=== PATIENT | male | born 1975 | race Caucasian/White ===

== ENCOUNTER 2020-02-08 03:04 | Emergency (ER) | payer OTHER ==
[2020-02-08] MEDS ORDERED: LACTATED RINGERS SOLUTION 1000 ML INFUS.BAG IV ONE ×2 (03:39→04:44)
[2020-02-08] MEDS ORDERED: morphine CARPU-JECT 4 MG/1 ML DISP.SYRIN IVPUSH ONE (03:39)
[2020-02-08] MEDS ORDERED: morphine SULFATE 4 MG/ML VIAL ONE (03:41)
[2020-02-08] MEDS ORDERED: SIMETHICONE 80 MG TAB.CHEW (FP) PO ONE (03:49)
[2020-02-08 04:00] LABS: BASO % 1.1 % (0-2.0); EOS % 2.8 % (0-4.5); HEMATOCRIT 45.9 % (35.4-49); HEMOGLOBIN 15.5 GM/dL (11.7-16.9); LYMPH % 16.8 % (8-40); MCH 31.8 pg (25.7-33.7); MCHC 33.7 g/dl (32.0-35.9); MEAN CELL VOLUME 94.4 fl (80-96); MEAN PLT VOLUME 8.1 fl (7.5-11.1); MONO % 4.4 % (3.8-10.2); NEUT % 74.9 % (42.8-82.8); PLATELET COUNT 240 K/MM3 (134-434); RBC 4.86 M/mm3 (4.00-5.60); RDW 13.9 % (11.9-15.9); WHITE BLOOD COUNT 10.2 K/mm3 (4.0-10.0)
[2020-02-08 04:09] LABS: CHLORIDE 110 mmol/L (98-107); POTASSIUM 3.8 mmol/L (3.5-5.1); SODIUM 141 mmol/L (136-145)
[2020-02-08 04:12] LABS: ALBUMIN 3.7 g/dl (3.4-5.0); ANION GAP 8 MMOL/L (8-16); BLOOD UREA NITROGEN 13.2 mg/dL (7-18); CALCIUM 8.4 mg/dL (8.5-10.1); CO2 23 mmol/L (21-32); GLUCOSE,RANDOM 131 mg/dL (74-106); LIPASE 180 U/L (73-393)
[2020-02-08 04:15] LABS: SGOT/AST 27 U/L (15-37); SGPT/ALT 61 U/L (13-61)
[2020-02-08 04:16] LABS: BILIRUBIN,TOTAL 0.3 mg/dL (0.2-1)
[2020-02-08 04:17] LABS: TOT PROT 7.2 g/dl (6.4-8.2)
[2020-02-08 04:18] LABS: ALK PHOS 129 U/L (45-117)
[2020-02-08 05:12] LABS: URINE APPEARANCE CLEAR; URINE BILIRUBIN NEGATIVE (NEGATIVE); URINE COLOR YELLOW; URINE GLUCOSE (UA) NEGATIVE (NEGATIVE); URINE KETONE NEGATIVE (NEGATIVE); URINE LEUK ESTERASE NEGATIVE (NEGATIVE); URINE NITRITE NEGATIVE (NEGATIVE); URINE PROTEIN NEGATIVE (NEGATIVE); URINE UROBILINOGEN 0.2 mg/dL (0.2-1.0)
[2020-02-08 14:01] VITALS: BP 117/68; PULSE 67; TEMP 98.4
== END 2020-02-08 14:26 | disposition home or self-care (01) ==
LOC: JER 03:04
PROC: 3E033NZ Introduction of Analgesics, Hypnotics, Sedatives into Peripheral Vein, Percutaneous Approach (ICD-10-PCS; principal; 2020-02-08)
DX: R10.13 Epigastric pain (principal)
CPT/HCPCS: 36415; 74019-TC-FY; 76705-TC; 80053; 81003; 83605; 83690; 84484; 85025; 86900; 87086; 93005; 93010; 99285-25; C9803; U0003

== ENCOUNTER 2020-05-19 03:08 | Inpatient (IN) | payer OTHER ==
[2020-05-19 03:21] VITALS: BMI 28.3
[2020-05-19] MEDS ORDERED: ONDANSETRON 4 MG/2 ML VIAL IVPUSH ONE (03:28)
[2020-05-19] MEDS ORDERED: ONDANSETRON 4 MG/2 ML VIAL ONE (03:37)
[2020-05-19] MEDS ORDERED: FAMOTIDINE 20 MG/50 ML IVPB 20 MG/50 ML MG IVPB ONE ×2 (03:42→03:49)
[2020-05-19] MEDS ORDERED: MAG HYDROX/AL HYDROX/SIMETH 30 ML UNIT-DOSE CUP PO ONE (03:42)
[2020-05-19] MEDS ORDERED: SODIUM CHLORIDE 0.9% 500 ML INFUS.BAG IV ONE (03:42)
[2020-05-19] MEDS ORDERED: MAG HYDROX/AL HYDROX/SIMETH 30 ML UNIT-DOSE CUP ONE (03:49)
[2020-05-19 04:00] LABS: BASO % 0.5 % (0-2.0); EOS % 0.1 % (0-4.5); HEMATOCRIT 45.8 % (35.4-49); HEMOGLOBIN 15.5 GM/dL (11.7-16.9); LYMPH % 10.5 % (8-40); MCH 31.1 pg (25.7-33.7); MCHC 33.8 g/dl (32.0-35.9); MEAN CELL VOLUME 91.9 fl (80-96); MONO % 7.7 % (3.8-10.2); NEUT % 81.2 % (42.8-82.8); PLATELET COUNT 253 K/MM3 (134-434); RBC 4.99 M/mm3 (4.00-5.60); RDW 13.5 % (11.9-15.9); WHITE BLOOD COUNT 12.9 K/mm3 (4.0-10.0)
[2020-05-19 04:25] LABS: POTASSIUM 3.9 mmol/L (3.5-5.1)
[2020-05-19 04:27] LABS: CALCIUM 8.9 mg/dL (8.5-10.1)
[2020-05-19 04:28] LABS: BLOOD UREA NITROGEN 14.3 mg/dL (7-18)
[2020-05-19 04:30] LABS: CREATININE 0.9 mg/dL (0.55-1.3)
[2020-05-19 04:32] LABS: BILIRUBIN,TOTAL 1.3 mg/dL (0.2-1); TOT PROT 7.5 g/dl (6.4-8.2)
[2020-05-19] MEDS ORDERED: PIPERACILLIN/TAZOB 3.375 GM 3.375 GM in DEXTROSE 5%-WATER - 50 ML IVPB ONE (05:42)
[2020-05-19] MEDS ORDERED: PIPERACILLIN/TAZOB 3.375 GM 3.375 GM/50 ML BAG IVPB ONE ×2 (05:51→10:51)
[2020-05-19 06:23] LABS: INR 1.02 (0.83-1.09); PROTHROMBIN TIME (PATIENT) 12.5 SEC (9.7-13.0)
[2020-05-19 06:26] LABS: ACTIVATED PTT 31.5 SECONDS (25.2-36.5)
[2020-05-19] MEDS ORDERED: POTASSIUM CHLORIDE 10 MEQ in DEXTROSE 5%-NORMAL SALINE 1,000 ML IVPB SCH (08:30)
[2020-05-19] MEDS ORDERED: DEXTROSE 5%-LACTATED RINGERS 1,000 ML IV SCH (08:30)
[2020-05-19] MEDS ORDERED: ACETAMINOPHEN 1000 MG/100 ML VIAL (NON FORMULARY) IVPB PRN ×2 (08:35→14:25)
[2020-05-19] MEDS ORDERED: MORPHINE SULFATE 2 MG/ML VIAL IVPUSH PRN ×2 (08:36→14:25)
[2020-05-19] MEDS ORDERED: PIPERACILLIN/TAZOB 3.375 GM 3.375 GM in DEXTROSE 5%-WATER - 50 ML IVPB SCH (09:00)
[2020-05-19] MEDS ORDERED: BUPIVACAINE HCL 100 ML ONE (11:10)
[2020-05-19] MEDS ORDERED: ROCURONIUM BROMIDE 50 MG/5 ML SYRINGE ONE (12:12)
[2020-05-19] MEDS ORDERED: NEOSTIGMINE METHYLSULFATE 0.5 MG/ML - 10 ML MDV ONE (12:15)
[2020-05-19] MEDS ORDERED: BUPIVACAINE HCL/PF 0.5% (5MG/ML) 10 ML VIAL IJ ONE (13:43)
[2020-05-19] MEDS: oxyCODONE HCL 5 MG TABLET PO PRN (20:30)
[2020-05-20] MEDS ORDERED: PIPERACILLIN/TAZOB 3.375 GM 3.375 GM in DEXTROSE 5%-WATER - 50 ML IVPB SCH (03:00)
[2020-05-20] MEDS: oxyCODONE HCL 5 MG TABLET PO PRN ×2 (05:18→09:03)
[2020-05-20 05:46] VITALS: TEMP 98.6
[2020-05-20 07:34] LABS: BASO % 0.1 % (0-2.0); EOS % 0.1 % (0-4.5); HEMATOCRIT 39.8 % (35.4-49); HEMOGLOBIN 14.4 GM/dL (11.7-16.9); LYMPH % 14.1 % (8-40); MCH 32.7 pg (25.7-33.7); MCHC 36.1 g/dl (32.0-35.9); MEAN CELL VOLUME 90.7 fl (80-96); MEAN PLT VOLUME 8.4 fl (7.5-11.1); MONO % 10.3 % (3.8-10.2); NEUT % 75.4 % (42.8-82.8); PLATELET COUNT 224 K/MM3 (134-434); RBC 4.39 M/mm3 (4.00-5.60); RDW 12.9 % (11.9-15.9); WHITE BLOOD COUNT 10.8 K/mm3 (4.0-10.0)
[2020-05-20 07:59] LABS: POTASSIUM 3.9 mmol/L (3.5-5.1)
[2020-05-20 08:07] LABS: CALCIUM 7.9 mg/dL (8.5-10.1)
[2020-05-20 08:08] LABS: BLOOD UREA NITROGEN 9.4 mg/dL (7-18); MAGNESIUM 2.3 mg/dL (1.8-2.4)
[2020-05-20 08:10] LABS: CREATININE 0.9 mg/dL (0.55-1.3)
[2020-05-20 08:11] LABS: PHOSPHOROUS 2.2 mg/dL (2.5-4.9)
[2020-05-20 08:12] LABS: BILIRUBIN,TOTAL 1.4 mg/dL (0.2-1); TOT PROT 6.4 g/dl (6.4-8.2)
[2020-05-20 08:23] LABS: INR 1.18 (0.83-1.09); PROTHROMBIN TIME (PATIENT) 14.4 SEC (9.7-13.0)
[2020-05-20 08:27] LABS: ALBUMIN 3.1 g/dl (3.4-5.0)
[2020-05-20 10:30] VITALS: BP 126/79; PULSE 90
== END 2020-05-20 18:29 | disposition home or self-care (01) | DRG 263 ==
LOC: JER 03:08 → JERBED 06:34 → J7W 16:15
PROVIDERS: ADMIT Internal Medicine; ATTEND Nurse Practitioner Family
PROC: 0FT44ZZ Resection of Gallbladder, Percutaneous Endoscopic Approach (ICD-10-PCS; principal; 2020-05-19 12:00)
DX: K80.00 Calculus of gallbladder with acute cholecystitis without obstruction (principal); K29.70 Gastritis, unspecified, without bleeding; I45.10 Unspecified right bundle-branch block; D18.09 Hemangioma of other sites
CPT/HCPCS: 36415; 71045-TC-FY; 76700-TC; 80053; 83690; 83735; 84100; 84443; 84484; 85025; 85610; 85730; 86850; 86900; 86901; 87081; 88304-TC; 93005; 93010; 94760; 99285-25; C9803; U0003